=== PATIENT | male | born 1955 | race Caucasian/White ===

== ENCOUNTER 2019-11-12 11:20 | Emergency (ER) | payer BC ==
[2019-11-12] MEDS ORDERED: Bacitracin Oint 1 GM U/D Packet TOP ONE (11:45)
[2019-11-12] MEDS ORDERED: Diphtheria,Pertussis(Acell),Tetanus Vaccine 0.5 ML Syringe IM ONE (11:45)
--- NOTE | 2019-11-12 11:45 | EDM.PDOC ---
ED HPI GENERAL MEDICAL PROBLEM - General Chief Complaint: General Stated Complaint: POSSIBLE OKEEFE BITE Time Seen by Provider: 11/12/19 11:31 Source of Information: Reports: Patient History Limitations: Reports: No Limitations - History of Present Illness INITIAL COMMENTS - FREE TEXT/NARRATIVE: HISTORY AND PHYSICAL: History of present illness: Patient is a 64-year-old male who presents to the emergency room today with complaints of fall last evening resulting in bruising to his face, pain to his left foot and frostbite of distal fingers bilaterally. He reports last evening he was walking outside when he slipped and fell striking the left side, and he did hit the left side of his face although did not lose consciousness. Bruising noted around the left orbit. He states he also hit the top of his left foot which has caused some pain with weightbearing and ambulating. Concerned of some blistering that is on the top of the fingers due to cold exposure. He states he was not outside very long and family members were inside , stated he was acting appropriately post fall. Patient denies any fever, chills, headache, change in vision, syncope or near syncope. Denies any chest pain, back pain, shortness of breath or cough. Denies any GI or symptoms. Has not noted any blood in urine or stool. Patient has been eating and drinking appropriately. Review of systems: As per history of present illness and below otherwise all systems reviewed and negative. Past medical history: As per history of present illness and as reviewed below otherwise noncontributory. Surgical history: As per history of present illness and as reviewed below otherwise noncontributory. Social history: See social history for further information Family history: As per history of present illness and as reviewed below otherwise noncontributory. Physical exam: General: Well-developed and well-nourished 64-year-old male. Alert and oriented. Nontoxic-appearing and in no acute distress. HEENT: See skin for details, scalp is non-tender with no obvious deformities. Mild tenderness around the left upper orbit, normocephalic, pupils equal and reactive bilaterally, no pain with ocular movement, negative for conjunctival pallor or scleral icterus, mucous membranes moist, TMs normal bilaterally, throat clear, neck supple, nontender, trachea midline. No drooling or trismus noted. No meningeal signs. No hot potato voice noted. Lungs: Clear to auscultation, breath sounds equal bilaterally, chest nontender. Heart: S1S2, regular rate and rhythm without overt murmur Abdomen: Soft, nondistended, nontender. Negative for masses or hepatosplenomegaly. Negative for costovertebral tenderness. Pelvis: Stable nontender. C-spine/Back: No pinpoint vertebral tenderness upon palpation. No crepitus, step -offs or obvious deformities. Patient is ambulatory into the emergency room without difficulty or deficit. Able to rock back on heels and walk on toes. Denies any urinary or fecal incontinence. Denies any numbness, tingling or saddle paresthesia. Skin: Bruising around left orbit. Blistering noted to tops of distal fingers on right hand (2nd-5th) and left 4th -5th digit - noncircumferential. Bruising noted to anterior aspect of base of toes of the left foot (2nd-4th). Otherwise skin is intact, warm, dry. No lesions or rashes noted. Extremities: Moves all extremities per self without difficulty or deficits, negative for cords or calf pain. Pain with palpation of anterior mid foot. Strong pedal and radial pulses bilat. Cap refill less than 3 seconds. +CMS. Neurovascular unremarkable. Neuro: Awake, alert, oriented. Cranial nerves II through XII unremarkable. Cerebellum unremarkable. Motor and sensory unremarkable throughout. Exam nonfocal. Notes: Dr Whittaker was directly involved in this case as this is a Trauma Alert due to patient's Plavix use. He has evaluated this patient as well and is agreeable with diagnostics. The larger blisters to the tops of the fingers wer sterilely debrided for patient comfort. Usual and customary procedure were followed. Bacitracin nonstick dressing applied to areas along with thorough education. Head CT shows no acute findings; chronic sinusitis. Negative foot x-ray. Did offer the patient a postop shoe along with crutches, he declines. He also declined his tetanus update regardless of education. Wound care, medication and supportive care measures were reviewed and discussed. Voices understanding and is agreeable to plan of care. Denies any further questions or concerns at this time. Diagnostics: Head and maxillofacial CT, Foot X-ray Therapeutics: Tdap, Bacitracin ointment, Debridement Prescription: Tramadol (#15) Impression: Fall Frostbite, bilateral hands Left foot injury Head Injury Plan: 1. Please review and follow the head injury instructions that we discussed in her printed in your discharge packet. 2. Limit any physical activities and follow cognitive rest (decrease screen time , reading, tv, etc..) over the next 24 hours pending resolution of symptoms. 3. Tylenol and/or ibuprofen as needed for pain management. Keep the skin blisters clean and dry. Wash gently twice daily with mild soap and water. Monitor fo signs of infection. Apply bacitracin ointment/triple antibiotic ointment over the next 2-3 days. 4. Follow-up with your primary care provider as we discussed. Return to the ED as needed and as discussed. Definitive disposition and diagnosis as appropriate pending reevaluation and review of above. left foot Pain Score (Numeric/FACES): 5 - Related Data Allergies Allergy/AdvReac Type Severity Reaction Status Date / Time No Known Allergies Allergy Verified 04/23/16 06:00 Home Meds: Home Meds Clopidogrel Bisulfate [Plavix] 75 mg PO DAILY 04/09/16 [History] Dulaglutide [Trulicity] 1.5 mg SUBCUT WEEKLY 04/09/16 [History] Hydrochlorothiazide 25 mg PO DAILY 04/09/16 [History] Multivitamin [Multivitamins] 1 tab PO DAILY 04/09/16 [History] Omeprazole 20 mg PO ACBREAKFAST 04/09/16 [History] atenoloL [Atenolol] 50 mg PO BID 04/09/16 [History] metFORMIN HCl [Metformin HCl] 1,000 mg PO BID 04/09/16 [History] Lisinopril 20 mg PO DAILY 04/14/16 [History] atorvaSTATin [Lipitor] 20 mg PO DAILY 04/14/16 [History] Aspirin 81 mg PO DAILY 11/12/19 [History] Dapagliflozin Propanediol [Farxiga] 10 mg PO DAILY 11/12/19 [History] Past Medical History HEENT History: Reports: Hard of Hearing, Impaired Vision Other HEENT History: wears glasses, has charu hearing aids Cardiovascular History: Reports: High Cholesterol, Hypertension, SD, Stents Respiratory History: Reports: COPD Other Gastrointestinal History: occasional heartburn Musculoskeletal History: Reports: Osteoarthritis Psychiatric History: Reports: Depression Endocrine/Metabolic History: Reports: Diabetes, Type II Hematologic History: Reports: None Immunologic History: Reports: None Oncologic (Cancer) History: Reports: None Dermatologic History: Reports: None - Infectious Disease History Infectious Disease History: Reports: None - Past Surgical History Neurological Surgical History: Reports: Lumbar Spine Musculoskeletal Surgical History: Reports: Arthroscopic Knee Social & Family History - Family History Family Medical History: Noncontributory ED ROS GENERAL - Review of Systems Review Of Systems: Comprehensive ROS is negative, except as noted in HPI. ED EXAM, GENERAL - Physical Exam Exam: See Below (See dictation) Course - Vital Signs Last Recorded V/S: Last Vital Signs Temp 96.5 F 11/12/19 11:28 Pulse 83 11/12/19 12:48 Resp 18 11/12/19 12:48 BP 119/68 11/12/19 12:48 Pulse Ox 96 11/12/19 12:48 - Orders/Labs/Meds Orders: Active Orders 24 hr Category Date Time Status Vaccines to be Administered [RC] PER UNIT ROUTINE Care 11/12/19 11:45 Active Meds: Medications Discontinued Medications Generic Name Dose Route Start Last Admin Trade Name Zhane PRN Reason Stop Dose Admin Bacitracin 1 dose 11/12/19 11:45 11/12/19 12:20 Bacitracin Oint 1 Gm TOP 11/12/19 11:46 1 dose ONETIME ONE Administration Diphtheria/Tetanus/Acell Pertussis 0.5 ml 11/12/19 11:45 11/12/19 12:21 Adacel IM 11/12/19 11:46 Not Given .ONCE ONE Departure - Departure Time of Disposition: 12:36 Disposition: Home, Self-Care 01 Clinical Impression: Frostbite of hands, bilateral Fall Qualifiers: Encounter type: initial encounter Qualified Code(s): W19.XXXA - Unspecified fall, initial encounter Foot injury Qualifiers: Encounter type: initial encounter Laterality: left Qualified Code(s): S99.922A - Unspecified injury of left foot, initial encounter Head injury Qualifiers: Encounter type: initial encounter Qualified Code(s): S09.90XA - Unspecified injury of head, initial encounter - Discharge Information Instructions: Frostbite, [id number], Head Injury, Adult, [id number] Referrals: Raquel Owusu MD [Primary Care Provider] - Forms: ED Department Discharge Additional Instructions: The following information is given to patients seen in the emergency department who are being discharged to home. This information is to outline your options for follow-up care. We provide all patients seen in our emergency department with a follow-up referral. The need for follow-up, as well as the timing and circumstances, are variable depending upon the specifics of your emergency department visit. If you don't have a primary care physician on staff, we will provide you with a referral. We always advise you to contact your personal physician following an emergency department visit to inform them of the circumstance of the visit and for follow-up with them and/or the need for any referrals to a consulting specialist. The emergency department will also refer you to a specialist when appropriate. This referral assures that you have the opportunity for follow-up care with a specialist. All of these measure are taken in an effort to provide you with optimal care, which includes your follow-up. Under all circumstances we always encourage you to contact your private physician who remains a resource for coordinating your care. When calling for follow-up care, please make the office aware that this follow-up is from your recent emergency room visit. If for any reason you are refused follow-up, please contact the [facility] at and asked to speak to the emergency department charge nurse. [facility] [address] [place] [id number] [place] [address] 1. Please review and follow the head injury instructions that we discussed in her printed in your discharge packet. 2. Limit any physical activities and follow cognitive rest (decrease screen time , reading, tv, etc..) over the next 24 hours pending resolution of symptoms. 3. Tylenol and/or ibuprofen as needed for pain management. Keep the skin blisters clean and dry. Wash gently twice daily with mild soap and water. Monitor fo signs of infection. Apply bacitracin ointment/triple antibiotic ointment over the next 2-3 days. 4. Follow-up with your primary care provider as we discussed. Return to the ED as needed and as discussed. Sepsis Event Note - Focused Exam Vital Signs: Vital Signs Temp Pulse Resp BP Pulse Ox 11/12/19 12:48 83 18 119/68 96 11/12/19 11:28 96.5 F 94 18 114/84 95 Date Exam was Performed: 11/12/19 Time Exam was Performed: 12:50 - My Orders Last 24 Hours: My Active Orders 11/12/19 11:45 Vaccines to be Administered [RC] PER UNIT ROUTINE - Assessment/Plan Last 24 Hours: My Active Orders 11/12/19 11:45 Vaccines to be Administered [RC] PER UNIT ROUTINE
--- NOTE | 2019-11-12 12:27 | CT ---
Head CT Technique: Multiple axial sections through the brain were obtained. Intravenous contrast was not utilized. Comparison: No prior intracranial imaging is available. Findings: Ventricles along with basal cisterns and sulci over the convexities are mildly prominent. No abnormal parenchymal densities are seen. No evidence of intracranial hemorrhage. No midline shift or mass effect is seen. Atherosclerotic calcification is seen within the vertebral vessels. Atherosclerotic calcification is noted within the carotid siphon. Bone window settings were reviewed. No acute calvarial abnormality is appreciated. Mastoid sinuses are clear. Mild mucosal thickening is noted within the left maxillary sinus and frontal. Slightly more prominent mucosal thickening is noted within the ethmoid sinuses. Impression: 1. Mild generalized atrophy. 2. Sinus disease without air-fluid levels. Sinus findings are most likely due to chronic sinusitis. 3. No acute intracranial abnormality is identified. Diagnostic code #2 This report was dictated in [place] Standard Time
--- NOTE | 2019-11-12 12:27 | CR ---
Left foot: 2 views of the left foot were obtained. Comparison: No prior foot exam. Plantar spur is noted. No fracture, dislocation or other bony abnormality is identified. Impression: 1. Plantar spur. 2. 2 view left foot study is otherwise unremarkable. Diagnostic code #2 This report was dictated in [place] Standard Time
--- NOTE | 2019-11-12 12:32 | CT ---
CT facial bones Technique: Multiple axial sections through the facial bones were obtained. Reconstructed coronal and sagittal images were reviewed. Findings: Degenerative change is noted within the visualized cervical spine. Mild mucosal thickening is seen within the left maxillary sinus and minimal mucosal thickening is noted within the right maxillary sinus. Minimal mucosal thickening is seen within the right sphenoid sinus. Slightly more prominent mucosal thickening is seen within the ethmoid sinuses with mild mucosal thickening also seen within the frontal sinuses. No air-fluid levels are appreciated within the sinuses. Right and left globes are symmetric. No retrobulbar abnormality is seen. Extraocular muscles and optic nerves are symmetric between right and left sides. No facial bone fracture is identified. Impression: 1. Sinus findings as noted above most likely due to mild chronic sinusitis. 2. No acute fracture or other acute abnormality is appreciated on CT study of the facial bones. 3. Degenerative change is partially visualized within the cervical spine. Diagnostic code #2 This report was dictated in [place] Standard Time
[2019-11-12 12:49] VITALS: BP 119/68; PULSE 83
== END 2019-11-12 12:43 | disposition home or self-care (01) ==
LOC: MW.ED 11:20
DX: T33.532A Superficial frostbite of left finger(s), initial encounter (principal); T33.531A Superficial frostbite of right finger(s), initial encounter; S05.12XA Contusion of eyeball and orbital tissues, left eye, initial encounter; S09.90XA Unspecified injury of head, initial encounter; S90.122A Contusion of left lesser toe(s) without damage to nail, initial encounter; I10 Essential (primary) hypertension; I25.2 Old myocardial infarction; E11.9 Type 2 diabetes mellitus without complications; Z79.82 Long term (current) use of aspirin; Z79.899 Other long term (current) drug therapy; Z79.84 Long term (current) use of oral hypoglycemic drugs; W01.198A Fall on same level from slipping, tripping and stumbling with subsequent striking against other object, initial encounter; X31.XXXA Exposure to excessive natural cold, initial encounter
CPT/HCPCS: 70450; 70450-26; 70486; 70486-26; 73620-26-LT; 73620-LT; 99284-25; 99285

== ENCOUNTER 2022-12-28 06:18 | Emergency (ER) | payer BC ==
[2022-12-28 06:26] VITALS: BP 168/89; PULSE 97
[2022-12-28] MEDS ORDERED: diphenhydrAMINE 25 MG Cap PO ONE (06:41)
[2022-12-28] MEDS ORDERED: Acyclovir 200 MG Cap PO ONE (06:41)
[2022-12-28] MEDS ORDERED: Acetaminophen 325 MG Tab PO ONE (06:42)
[2022-12-28] MEDS ORDERED: Ibuprofen 400 MG Tab PO ONE (06:43)
== END 2022-12-28 07:38 | disposition home or self-care (01) ==
LOC: MW.ED 06:18
DX: B02.9 Zoster without complications (principal); I10 Essential (primary) hypertension; E78.00 Pure hypercholesterolemia, unspecified; I25.2 Old myocardial infarction; J44.9 Chronic obstructive pulmonary disease, unspecified; M19.90 Unspecified osteoarthritis, unspecified site; E11.9 Type 2 diabetes mellitus without complications; Z79.02 Long term (current) use of antithrombotics/antiplatelets; Z79.82 Long term (current) use of aspirin; Z79.899 Other long term (current) drug therapy; Z79.84 Long term (current) use of oral hypoglycemic drugs
CPT/HCPCS: 99282; A9270; 99283